=== PATIENT | female | born 1945 | race Two or more races ===

== ENCOUNTER 2024-04-23 09:59 | Emergency (ER) | payer MEDICARE, OTHER ==
[~2024-04-23] VITALS: Ht 149.9 cm; Wt 77.3 kg
[2024-04-23 13:45] LABS: BASOPHILS % (AUTO) 0.2 % (0-1); EOSINOPHILS % (AUTO) 0 % (0-6); HEMATOCRIT 34.3 % (35.0-45.0); HEMOGLOBIN 11.6 g/dl (12.0-16.0); LYMPHOCYTES # (AUTO) 0.4 X10'3 (1.1-4.8); LYMPHOCYTES % (AUTO) 2.1 % (21-51); MEAN CORPUSCULAR HGB CONC 33.9 g/dL (33.0-36.5); MEAN CORPUSCULAR VOLUME 103.4 FL (78-98); MEAN PLATELET VOLUME 9.8 FL (7.4-10.4); MONOCYTES # (AUTO) 1.1 X10'3 (0-0.9); MONOCYTES % (AUTO) 6.3 % (2-12); NEUTROPHILS # (AUTO) 16.6 X10'3 (1.8-7.7); NEUTROPHILS % (AUTO) 91.4 % (42-75); PLATELET COUNT 218 X10'3 (140-440); RED BLOOD COUNT 3.32 X10'6 (4.20-5.60); RED CELL DISTRIBUTION WIDTH 14.4 % (11.5-14.5); WHITE BLOOD COUNT 18.2 X10'3 (4.5-11.0)
[2024-04-23 14:22] LABS: ALANINE AMINOTRANSFERASE 21 U/L (12-78); ALBUMIN 3.9 G/DL (3.4-5.0); ALBUMIN/GLOBULIN RATIO 0.9 (1.1-1.5); ALKALINE PHOSPHATASE 35 IU/L (46-116); ANION GAP 10 (8-16); ASPARTATE AMINO TRANSFERASE 17 U/L (10-37); BILIRUBIN,TOTAL 1.1 MG/DL (0.1-1.0); BLOOD UREA NITROGEN 17 MG/DL (7-18); BUN/CREATININE RATIO 20.5 (10.0-20.0); C-REACTIVE PROTEIN 8.77 MG/DL (0.0-0.5); CALCIUM 8.8 MG/DL (8.5-10.1); CHLORIDE 105 MMOL/L (99-107); CREATININE 0.83 MG/DL (0.40-0.90); GLUCOSE 115 MG/DL (70-104); LIPASE 21 U/L (16-77); POTASSIUM 3.7 MMOL/L (3.5-5.1); SODIUM 139 MMOL/L (135-145); TOTAL CARBON DIOXIDE 23.8 MMOL/L (24-32); TOTAL PROTEIN 8.2 G/DL (6.4-8.2); eCRCL 38 ML/MIN; eGFR 66 ML/MIN
[2024-04-23] MEDS ORDERED: CYCL-1 PO (15:47)
[2024-04-23] MEDS ORDERED: LIDO700A32 TOP (15:47)
[2024-04-23] MEDS: HYDROcodone/acetaminophen 5mg/325mg tablet PO ONE (16:31)
[2024-04-23] MEDS: ondansetron 4mg rapidly disintigrating tab PO ONE (16:31)
[2024-04-23] MEDS: dexamethasone sod phosphate 10mg/ml inj PO STA (16:32)
[2024-04-23 16:35] VITALS: BP 133/89; PULSE 67; RESP 16; TEMP 98; O2SAT 98
== END 2024-04-23 16:37 | disposition home or self-care (01) ==
LOC: ER 10:00
DX: S33.5XXA Sprain of ligaments of lumbar spine, initial encounter (principal); M54.32 Sciatica, left side; M54.31 Sciatica, right side; Z88.5 Allergy status to narcotic agent; Z79.899 Other long term (current) drug therapy; X58.XXXA Exposure to other specified factors, initial encounter; Y93.89 Activity, other specified; Y92.89 Other specified places as the place of occurrence of the external cause; Y99.8 Other external cause status
CPT/HCPCS: 36415; 72100; 80053; 83690; 85025; 86140; 99284; J1100

== ENCOUNTER 2024-04-26 05:28 | Emergency (ER) | payer MEDICARE, OTHER ==
[~2024-04-26] VITALS: Ht 149.9 cm; Wt 76.8 kg
[~2024-04-26 05:28] MED LIST: CYCL-1 PO; LIDO700A32 TOP
[2024-04-26] MEDS: HYDROcodone/acetaminophen 5mg/325mg tablet PO ONE (07:42)
[2024-04-26] MEDS: ketorolac tromethamine 15mg/ml inj. IM ONE (07:43)
[2024-04-26] MEDS ORDERED: HYDR-3965 PO (08:15)
[2024-04-26] MEDS ORDERED: IBUP-1985 PO (08:15)
[2024-04-26 09:19] VITALS: BP 128/67; PULSE 75; RESP 16; TEMP 98.1; O2SAT 98
== END 2024-04-26 09:22 | disposition home or self-care (01) ==
LOC: ER 05:28
DX: M54.50 Low back pain, unspecified (principal); M79.642 Pain in left hand; Z88.2 Allergy status to sulfonamides; Z88.5 Allergy status to narcotic agent; Z79.899 Other long term (current) drug therapy; Z79.1 Long term (current) use of non-steroidal anti-inflammatories (NSAID)
CPT/HCPCS: 29125; 73130; 96372; 99283; J1885

== ENCOUNTER 2024-05-03 12:30 | Emergency (ER) | payer MEDICARE, OTHER ==
[~2024-05-03] VITALS: Ht 149.9 cm; Wt 79.5 kg
[~2024-05-03 12:30] MED LIST changes: +HYDR-3965 PO; +IBUP-1985 PO
[2024-05-03 13:41] LABS: BASOPHILS % (AUTO) 0 % (0-1); EOSINOPHILS % (AUTO) 0.1 % (0-6); HEMOGLOBIN 7.2 g/dl (12.0-16.0); LYMPHOCYTES # (AUTO) 1.1 X10'3 (1.1-4.8); LYMPHOCYTES % (AUTO) 5.3 % (21-51); MEAN CORPUSCULAR HEMOGLOBIN 34.8 PG (27.0-31.0); MEAN CORPUSCULAR HGB CONC 34.4 g/dL (33.0-36.5); MEAN CORPUSCULAR VOLUME 101.3 FL (78-98); MEAN PLATELET VOLUME 8.4 FL (7.4-10.4); MONOCYTES # (AUTO) 1.7 X10'3 (0-0.9); MONOCYTES % (AUTO) 8.5 % (2-12); NEUTROPHILS # (AUTO) 17.1 X10'3 (1.8-7.7); NEUTROPHILS % (AUTO) 86.1 % (42-75); PLATELET COUNT 495 X10'3 (140-440); RED BLOOD COUNT 2.08 X10'6 (4.20-5.60); RED CELL DISTRIBUTION WIDTH 14.3 % (11.5-14.5); WHITE BLOOD COUNT 19.9 X10'3 (4.5-11.0)
[2024-05-03 13:44] LABS: HEMATOCRIT 21.1 % (35.0-45.0)
[2024-05-03] MEDS: ondansetron/PF 4mg/2ml inj IV ONE (13:54)
[2024-05-03] MEDS: morphine 4 MG/ML inj SYRINge IV ONE ×2 (13:54→15:14)
[2024-05-03 13:55] LABS: ALBUMIN 1.8 G/DL (3.4-5.0); ANION GAP 7 (8-16); BLOOD UREA NITROGEN 20 MG/DL (7-18); CALCIUM 8.3 MG/DL (8.5-10.1); CHLORIDE 100 MMOL/L (99-107); CREATININE 0.77 MG/DL (0.40-0.90); GLUCOSE 112 MG/DL (70-104); POTASSIUM 3.8 MMOL/L (3.5-5.1); SODIUM 133 MMOL/L (135-145); TOTAL CARBON DIOXIDE 26.1 MMOL/L (24-32); eCRCL 41 ML/MIN; eGFR 73 ML/MIN
[2024-05-03] MEDS ORDERED: iohexol 300mg/ml 100ml inj. ONE (14:02)
[2024-05-03 14:35] LABS: NUCLEATED RED BLOOD CELLS 1 /100WBC (0-0); PLATELET ESTIMATE INCREASED; ROULEAUX 1+; SPHEROCYTES FEW; TOTAL CELLS COUNTED 100
[2024-05-03 14:36] LABS: POLYCHROMASIA FEW
[2024-05-03 14:36] LABS: ALANINE AMINOTRANSFERASE 119 U/L (12-78); ALBUMIN 1.8 G/DL (3.4-5.0); ALBUMIN/GLOBULIN RATIO 0.3 (1.1-1.5); ALKALINE PHOSPHATASE 84 IU/L (46-116); ASPARTATE AMINO TRANSFERASE 115 U/L (10-37); BILIRUBIN,TOTAL 1.1 MG/DL (0.1-1.0); TOTAL PROTEIN 7.4 G/DL (6.4-8.2)
[2024-05-03 14:40] LABS: BILIRUBIN,DIRECT 0.5 MG/DL (0-0.3)
[2024-05-03 15:08] LABS: OCCULT BLOOD STOOL POSITIVE (Neg)
[2024-05-03] MEDS: LORazepam 2 mg/ml vial IV ONE (15:14)
[2024-05-03 16:05] LABS: BILIRUBIN,URINE NEGATIVE (Neg); CLARITY,URINE CLOUDY (Clear); GLUCOSE, URINE NEGATIVE (Neg); KETONES,URINE NEGATIVE (Neg); LEUKOCYTE ESTERASE ,URINE SMALL (Neg); NITRITES, URINE NEGATIVE (Neg); OCCULT BLOOD,URINE NEGATIVE (Neg); PH,URINE 6.5 (4.8-8.0); PROTEIN,URINE NEGATIVE (Neg); UROBILINOGEN,URINE >=8.0 E.U/dL (0.2-1.0)
[2024-05-03 16:06] LABS: UA COLLECTION TYPE OTHER
[2024-05-03 16:07] LABS: COLOR,URINE DARK YELLOW (Yellow)
[2024-05-03 16:10] LABS: BACTERIA,URINE 4+ /HPF (Neg); MUCUS STRANDS NONE SEEN /LPF (Neg); RBC,URINE NONE SEEN /HPF (0-2); SQUAMOUS EPITHELIAL CELL,UR NONE SEEN /LPF (FEW); TRANSITIONAL EPI CELLS,URINE FEW /HPF; WBC CLUMPS,URINE MANY /HPF (NEGATIVE); WBC,URINE TNTC /HPF (0-4)
[2024-05-03] MEDS: HYDROmorphone 1 mg/ml syringe IV ONE (19:19)
[2024-05-03 20:41] VITALS: BP 150/84; PULSE 122; RESP 22; TEMP 99.1; O2SAT 96
[2024-05-06] MEDS ORDERED: NITR100C6 PO (17:59)
== END 2024-05-03 20:44 | disposition still patient (30) ==
LOC: ER 12:31
DX: G83.4 Cauda equina syndrome (principal); D53.9 Nutritional anemia, unspecified; R74.8 Abnormal levels of other serum enzymes; E88.09 Other disorders of plasma-protein metabolism, not elsewhere classified; L40.59 Other psoriatic arthropathy; D84.821 Immunodeficiency due to drugs; G89.29 Other chronic pain; M54.9 Dorsalgia, unspecified; M54.50 Low back pain, unspecified; Z88.8 Allergy status to other drugs, medicaments and biological substances; Z79.1 Long term (current) use of non-steroidal anti-inflammatories (NSAID); Z79.899 Other long term (current) drug therapy; Z98.890 Other specified postprocedural states
CPT/HCPCS: 36415; 71045; 72148; 74178; 80048; 80076; 81001; 82272; 83605; 83735; 84145; 85007; 85025; 86885; 86900; 86901; 87040; 87077; 87088; 87186; 93005; 96374; 96375; 96376; 99285; A4314; J1170; J2060; J2270; J2405; Q9967